=== PATIENT | female | born 1945 | race Hispanic/Latino ===

== ENCOUNTER 2017-07-29 10:32 | Outpatient (CLI) | payer MEDICARE, OTHER ==
[2017-07-29 11:44] LABS: Bilirubin Negative (Negative); Blood, Urine Small (Negative); Glucose, Urine (Dipstick) Negative (Negative); Ketone, Urine Negative (Negative); Nitrite Negative (Negative); Protein, Urine (Dipstick) Negative (Neg-Trace); Urobilinogen 0.2 mg/dL (0.2-1.0)
[2017-07-29 11:56] LABS: Bacteria/HPF 2+ HPF (None Seen); RBC/HPF 0-3 HPF (0-3); Squamous Epithelial None Seen HPF (0-3); WBC/HPF 0-3 HPF (0-3)
--- NOTE | 2017-07-29 16:31 | CT ---
CT ABDOMEN AND PELVIS WITH AND WITHOUT IV CONTRAST: HISTORY: Renal stone, microscopic hematuria. The patient has had bladder suspension surgery. FINDINGS: Comparison is made with the exam of 09/13/06. The 3.8 cm cyst in the posterior aspect of the right lobe of the liver is stable. The spleen, pancr eas, and adrenal glands are normal. No calcified gallstones are seen. There are tiny bilateral renal calculi. No calculi are seen in the ureters or the urinary bladder. No hydroureteral nephrosis is seen on either side. There is no postcontrast enhancement of the alex al parenchyma with normal excretion to the ureters and the urinary bladder. No renal mass is seen o n either side. No free air, free fluid, or lymphadenopathy is seen in the abdomen or pelvis. The small bowel loops are not abnormally dilated. There is extensive colonic diverticulosis without evidence of divertic ulitis. The patient is post-hysterectomy. There are vascular calcifications without evidence of an eurysmal dilatation of the abdominal aorta. The lung bases are unremarkable. There are degenerativ e changes in the spine. IMPRESSION: 1. Nonobstructing tiny bilateral renal calculi. 2. Colonic diverticulosis. 3. Stable hepatic cyst since 2005. POS: [facility]
== END 2017-07-29 10:33 | disposition home or self-care (01) ==
LOC: SCSCT 10:32
PROVIDERS: ATTEND Urology
DX: N20.0 Calculus of kidney (principal); R31.29 Other microscopic hematuria; K57.90 Diverticulosis of intestine, part unspecified, without perforation or abscess without bleeding; K76.89 Other specified diseases of liver; Z87.440 Personal history of urinary (tract) infections
CPT/HCPCS: 74178; 81001; 87077; 87086; 87186

== ENCOUNTER 2018-02-16 10:39 | Outpatient (CLI) | payer MEDICARE, OTHER | END 2018-02-16 10:40 | disposition home or self-care (01) | LOC: BICMAMMO 10:39 | PROVIDERS: ATTEND Internal Medicine | DX: Z12.31 Encounter for screening mammogram for malignant neoplasm of breast (principal); Z13.820 Encounter for screening for osteoporosis; M85.89 Other specified disorders of bone density and structure, multiple sites; R92.1 Mammographic calcification found on diagnostic imaging of breast; Z78.0 Asymptomatic menopausal state | CPT/HCPCS: 77063; 77067; 77080 ==

== ENCOUNTER 2018-11-03 12:01 | Outpatient (CLI) | payer MEDICARE, OTHER ==
--- NOTE | 2018-11-03 14:02 | RAD ---
KUB: DATE: 11/03/2018. PROVIDED CLINICAL HISTORY: Renal calculus. FINDINGS: No radiographic comparisons. The abdominal bowel gas pattern is nonspecific. The visualized lung ba ses appear clear. Radiodensity overlying the left L3 transverse process could reflect a ureteral sathya culus. Radiodensity overlying the left upper quadrant cranial to the mid left 11th rib could reflect a renal calculus. No additional radiographically apparent urinary tract calculi. Osseous structure s demonstrate no acute findings. IMPRESSION: Possible left renal and ureteral calculi. POS: [facility]
== END 2018-11-03 12:02 | disposition home or self-care (01) ==
LOC: RAD 12:01
PROVIDERS: ATTEND Urology
DX: N20.0 Calculus of kidney (principal)
CPT/HCPCS: 74018

== ENCOUNTER 2019-03-23 10:46 | Outpatient (CLI) | payer MEDICARE, OTHER ==
--- NOTE | 2019-03-23 11:14 | MMO ---
Bilateral MAMMO Bilat Screen [facility]. CLINICAL HISTORY: Patient is 73 years old and is seen for screening. The patient has no family history of breast cancer. The patient has no personal history of cancer. The patient has a history of left Excisional Biopsy in 1993 - benign. VIEWS: The views performed were: bilateral craniocaudal with tomosynthesis and bilateral mediolateral oblique with tomosynthesis. FILMS COMPARED: The present examination has been compared to prior imaging studies performed at [facility] on 08/16/2014, 02/04/2016, 02/10/2017 and 02/16/2018. MAMMOGRAM FINDINGS: The breasts are heterogeneously dense, which could obscure a lesion on mammography. There are stable benign appearing calcifications seen in both breasts. There are no suspicious masses, suspicious calcifications, or new areas of architectural distortion. IMPRESSION: THERE IS NO MAMMOGRAPHIC EVIDENCE OF MALIGNANCY. A ROUTINE FOLLOW-UP MAMMOGRAM IN 1 YEAR IS RECOMMENDED. THE RESULTS OF THIS EXAM WERE SENT TO THE PATIENT. ACR BI-RADS Category 2 - Benign finding MAMMOGRAPHY NOTE: 1. A negative mammogram report should not delay a biopsy if a dominant of clinically suspicious mass is present. 2. Approximately 10% to 15% of breast cancers are not detected by mammography. 3. Adenosis and dense breasts may obscure an underlying neoplasm.
== END 2019-03-23 10:47 | disposition home or self-care (01) ==
LOC: BICMAMMO 10:46
PROVIDERS: ATTEND Internal Medicine
DX: Z12.31 Encounter for screening mammogram for malignant neoplasm of breast (principal)
CPT/HCPCS: 77063; 77067

== ENCOUNTER 2019-04-19 09:57 | Outpatient (CLI) | payer MEDICARE, OTHER ==
[2019-04-19 11:20] LABS: #Lymphocytes 1.7 thou/uL (1.20-3.40); #Monocytes 0.4 thou/uL (0.11-0.59); #Neutrophils 3.8 thou/uL (1.40-6.50); %Basophils 0.5 % (0.0-1.0); %Eosinophils 0.7 % (0.0-10.0); %Lymphocytes 27.7 % (21.0-51.0); %Neutrophils 64.3 % (42.0-75.0); Hemoglobin 14.3 g/dL (12.0-16.0); Mean Corpuscular HGB CONC 33.1 g/dL (32.0-36.0); Mean Corpuscular Hemoglobin 30.4 pg (27.0-31.0); Mean Corpuscular Volume 91.9 fL (78.0-98.0); Mean Platelet Volume 7.8 fL (7.4-10.4); Platelet Count 258 thou/uL (130-400); RBC Distribution Width 11.7 % (11.5-14.5)
[2019-04-19 15:14] LABS: Bacteria/HPF 3+ HPF (None Seen); Bilirubin Negative (Negative); Blood, Urine Trace (Negative); Clarity Clear (Clear); Glucose, Urine (Dipstick) Normal (Negative); Leukocyte 25 Leu/uL (Negative); Nitrite Negative (Negative); Protein, Urine (Dipstick) Negative (Neg-Trace); RBC/HPF 0-3 HPF (0-3); Squamous Epithelial 0-3 HPF (0-3); Urobilinogen Normal mg/dL (Less than 2); WBC/HPF 0-3 HPF (0-3)
== END 2019-04-19 09:58 | disposition home or self-care (01) ==
LOC: LABBT 09:57
PROVIDERS: ATTEND Orthopaedic Surgery Hand Surgery
DX: Z01.818 Encounter for other preprocedural examination (principal); M67.441 Ganglion, right hand
CPT/HCPCS: 81001; 85025; 93005; 93010

== ENCOUNTER 2019-04-24 11:53 | Day surgery (SDC) | payer MEDICARE, OTHER ==
[2019-04-19 10:08] VITALS: BMI 24.3
[~2019-04-24 11:53] MED LIST: Lidocaine 1% PF 5 ML VIAL ONE; PROPOFOL 200 MG/20 ML VIAL ONE
[2019-04-24] MEDS ORDERED: Bupivacaine PF 0.5% 30 ML VIAL ONE (12:56)
[2019-04-24] MEDS ORDERED: Bacitracin Zinc Ointment 30 gm TUBE ONE (12:56)
[2019-04-24] MEDS ORDERED: Sodium Chloride 0.9% 10 ML ONE (12:56)
[2019-04-24] MEDS ORDERED: Fentanyl 100 MCG/2 ML VIAL ONE (13:09)
[2019-04-24] MEDS ORDERED: Betamet Acet/Betamet Na Ph 30 MG/5 ML VIAL ONE (13:38)
[2019-04-24] MEDS ORDERED: Propofol 500 MG/50 ML VIAL ONE (13:44)
[2019-04-24] MEDS ORDERED: PROPOFOL 40 ML ONE (13:44)
[2019-04-24] MEDS ORDERED: Ketorolac Tromethamine 30 MG/ML VIAL ONE (16:51)
--- NOTE | 2019-04-24 22:37 | OP ---
DATE OF PROCEDURE: 04/24/2019 PREOPERATIVE DIAGNOSIS: Left A1 anatoly small finger ganglion. POSTOPERATIVE DIAGNOSIS: Left A1 anatoly small finger ganglion. FINDINGS: A 6-mm A1 anatloy ganglion tendon sheath part on the A1 anatoly. PROCEDURE PERFORMED: Left A1 anatoly small finger ganglion excision. ESTIMATED BLOOD LOSS: Less than 5 mL. TOURNIQUET TIME: 18 minutes. SPECIMEN SENT: Ganglion as described above. DESCRIPTION OF PROCEDURE: After successful anesthesia, which was the IV sedation with 10 mL of 0.5% Marcaine block, we waited 5 minutes, then exsanguinated the limb, inflated tourniquet to 250 mmHg pressure. A zigzag incision was made of 1 cm over the mass, carried through the skin and subcutaneous tissue. We visualized the digital nerve with blunt dissection and protected the nerve with gentle retraction. We then sounded the mass, lifted off a Shelton blade from half tendon sheath and half A1 anatoly base. There was no triggering. We sent the mass en bloc to the lab. I placed 3 mL of Celestone, deflated the tourniquet and obtained hemostasis. We closed the wound with 4-0 nylon and placed the patient in a bulky dressing without evidence of anesthetic or operative complication. Job ID: [id number]
== END 2019-04-24 17:15 | disposition home or self-care (01) ==
LOC: SDC 11:53
PROVIDERS: ATTEND Orthopaedic Surgery Hand Surgery
PROC: 0LB70ZZ Excision of Right Hand Tendon, Open Approach (ICD-10-PCS; principal; 2019-04-24)
DX: M67.441 Ganglion, right hand (principal); I10 Essential (primary) hypertension; E78.5 Hyperlipidemia, unspecified; E03.9 Hypothyroidism, unspecified; Z91.048 Other nonmedicinal substance allergy status; Z91.040 Latex allergy status; Z79.899 Other long term (current) drug therapy
CPT/HCPCS: 88304; J0702; J1885; J2001; J2704; J3010; J3490; S0020

== ENCOUNTER 2020-03-26 10:18 | Outpatient (CLI) | payer MEDICARE, OTHER ==
--- NOTE | 2020-03-26 10:53 | MMO ---
Bilateral MAMMO Bilat Screen [facility]. CLINICAL HISTORY: Patient is 74 years old and is seen for screening. The patient has no family history of breast cancer. The patient has no personal history of cancer. The patient has a history of left Excisional Biopsy in 1993 - benign. VIEWS: The views performed were: bilateral craniocaudal with tomosynthesis and bilateral mediolateral oblique with tomosynthesis. FILMS COMPARED: The present examination has been compared to prior imaging studies performed at [facility] on 02/04/2016, 02/10/2017, 02/16/2018 and 03/23/2019. This study has been interpreted with the assistance of computer-aided detection. MAMMOGRAM FINDINGS: The breasts are heterogeneously dense, which could obscure a lesion on mammography. There are stable benign appearing calcifications seen in both breasts. There are no suspicious masses, suspicious calcifications, or new areas of architectural distortion. IMPRESSION: THERE IS NO MAMMOGRAPHIC EVIDENCE OF MALIGNANCY. A ROUTINE FOLLOW-UP MAMMOGRAM IN 1 YEAR IS RECOMMENDED. THE RESULTS OF THIS EXAM WERE SENT TO THE PATIENT. ACR BI-RADS Category 2 - Benign finding MAMMOGRAPHY NOTE: 1. A negative mammogram report should not delay a biopsy if a dominant of clinically suspicious mass is present. 2. Approximately 10% to 15% of breast cancers are not detected by mammography. 3. Adenosis and dense breasts may obscure an underlying neoplasm. Reported by: GILLES VILLALOBOS MD Electonically Signed: [id number]
--- NOTE | 2020-03-26 14:31 | BD ---
Exam: DEXA Bone Density 03/26/20 INDICATION: Osteoporosis screening evaluation. COMPARISON: None. FINDINGS: Lumbar Spine: BMD (g/cm2) T-SCORE Z-SCORE L1 0.874 -1.1 1.0 L2 0.837 -1.7 0.5 L3 0.950 -1.2 1.2 L4 0.891 -1.5 0.9 L1-L4 0.890 -1.4 0.9 Left Femoral Neck: 0.662 -1.7 0.2 Total Femur: 0.907 -0.3 1.3 Impression: Based on WHO criteria, patient's bone mineral density is osteopenic. The patient is at moderate risk for fracture. POS: [facility]
== END 2020-03-26 10:19 | disposition home or self-care (01) ==
LOC: BICMAMMO 10:18
PROVIDERS: ATTEND Internal Medicine
DX: Z12.31 Encounter for screening mammogram for malignant neoplasm of breast (principal); M85.89 Other specified disorders of bone density and structure, multiple sites; Z91.89 Other specified personal risk factors, not elsewhere classified
CPT/HCPCS: 77063; 77067; 77080

== ENCOUNTER 2020-04-30 09:59 | Outpatient (CLI) | payer MEDICARE, OTHER ==
--- NOTE | 2020-04-30 10:37 | RAD ---
EXAM: Single view of the abdomen HISTORY: Kidney stone COMPARISON: 11/03/2018 FINDINGS: Single view of the abdomen shows a nonspecific, nonobstructive bowel gas pattern. There is a punctate 2 mm calcification projecting over the lower pole the right kidney. The previously seen calcification projecting over the region of the left kidney is not seen on today's exam. The bones ar e unremarkable. IMPRESSION: Possible small right kidney stone
== END 2020-04-30 10:00 | disposition home or self-care (01) ==
LOC: BICRAD 09:59
PROVIDERS: ATTEND Urology
DX: N20.0 Calculus of kidney (principal); N39.0 Urinary tract infection, site not specified
CPT/HCPCS: 74018

== ENCOUNTER 2021-12-15 13:25 | Outpatient (CLI) | payer MEDICARE, OTHER | END 2021-12-15 13:26 | disposition home or self-care (01) | LOC: BICMAMMO 13:25 | PROVIDERS: ATTEND Obstetrics & Gynecology | DX: Z12.31 Encounter for screening mammogram for malignant neoplasm of breast (principal); Z91.89 Other specified personal risk factors, not elsewhere classified | CPT/HCPCS: 77063; 77067 ==

== ENCOUNTER 2023-12-03 08:10 | Outpatient (CLI) | payer MEDICARE, OTHER | END 2023-12-03 08:11 | disposition home or self-care (01) | LOC: BICULT 08:10 | PROVIDERS: ATTEND Internal Medicine | DX: R74.8 Abnormal levels of other serum enzymes (principal); K76.0 Fatty (change of) liver, not elsewhere classified | CPT/HCPCS: 76700 ==